=== PATIENT | female | born 1985 | race Two or more races ===

== ENCOUNTER 2016-12-27 13:46 | Emergency (ER) | payer OTHER ==
[2016-12-27 13:51] VITALS: TEMP 98.3; BMI 25.4
--- NOTE | 2016-12-27 14:23 | PDOC ---
History of Present Illness - General Chief Complaint: Headache Stated Complaint: HEADACHE Time Seen by Provider: 12/27/16 14:21 - History of Present Illness Initial Comments: 12/27/16 14:54 The pt is a 31 year old with no PMH who presents to ED complaining of a left sided headache that started 4 days ago. The pain is intermittent, lasts for an hour, 8/10 in severity, associated with light sensitivity, relieved by Ibuprofen. The pt reports numbness in upper extremities for a week. She also had episode of dizziness 6 days ago that resolved after lying in bed. The pt has never had headache like that in the past. She denies weakness, LOC. The pt denies chest pain, palpitations, hearing problems. Past History - Past Medical History Allergies/Adverse Reactions: Allergies Allergy/AdvReac Type Severity Reaction Status Date / Time No Known Allergies Allergy Verified 12/27/16 13:51 Home Medications: Ambulatory Orders Vit #108/Iron/FA [ One Tablet] 1 tab PO DAILY 04/30/15 Anemia: No Asthma: No Cancer: No Cardiac Disorders: No Diabetes: No HTN: No Hypercholesterolemia: No Seizures: No Thyroid Disease: No Other medical history: PT DENIES MEDICAL HX - Reproductive History (#): 3 Para: 1 Cervical CA: No Dysfunctional Uterine Bleeding: No Ectopic : No Endometrial CA: No Polycystic Ovaries: No Therapeutic (s) & number: No Tubal Ligation: No Spontaneous : 1 - Psycho/Social/Smoking Cessation Hx Anxiety: No Suicidal Ideation: No Smoking Status: No Smoking History: Never smoked Have you smoked in the past 12 months: No Number of Cigarettes Smoked Daily: 0 Hx Alcohol Use: No Drug/Substance Use Hx: No Substance Use Type: None Hx Substance Use Treatment: No Review of Systems - Review of Systems Able to Perform ROS?: Yes Comments:: 12/27/16 15:12 REVIEW OF SYSTEMS CONSTITUTIONAL: Absent: fever, chills, diaphoresis, generalized weakness, malaise, loss of appetite, weight change HEENT: Absent: rhinorrhea, nasal congestion, throat pain, throat swelling, difficulty swallowing, mouth swelling, ear pain, eye pain, visual changes CARDIOVASCULAR: Absent: chest pain, syncope, palpitations, irregular heart rate, lightheadedness , peripheral edema RESPIRATORY: Absent: cough, shortness of breath, dyspnea with exertion, orthopnea, wheezing, stridor, hemoptysis GASTROINTESTINAL: Absent: abdominal pain, abdominal distension, nausea, vomiting, diarrhea, constipation, melena, hematochezia GENITOURINARY: Absent: dysuria, frequency, urgency, hesitancy, hematuria, flank pain, genital pain MUSCULOSKELETAL: Absent: myalgia, arthralgia, joint swelling, back pain, neck pain SKIN: Absent: rash, itching, pallor NEUROLOGIC: headache Absent: focal weakness or paresthesias, dizziness, unsteady gait, seizure, mental status changes PSYCHIATRIC: Absent: anxiety, depression, suicidal or homicidal ideation, hallucinations. Is the patient limited Kazakh proficient: No *Physical Exam - Vital Signs Last Vital Signs Temp Pulse Resp BP Pulse Ox 98.3 F 73 16 131/76 95 12/27/16 13:48 12/27/16 13:48 12/27/16 13:48 12/27/16 13:48 12/27/16 13:48 - Physical Exam Comments: 12/27/16 15:13 GENERAL: The patient is awake, alert, and fully oriented, in no acute distress. HEAD: Normal with no signs of trauma. EYES: PERRL, extraocular movements intact, sclera anicteric, conjunctiva clear. No ptosis. ENT: Ears normal, nares patent, oropharynx clear without exudates, moist mucous membranes. NECK: Trachea midline, full range of motion, supple. LUNGS: Breath sounds equal, clear to auscultation bilaterally, no wheezes, no crackles, no accessory muscle use. HEART: Regular rate and rhythm, S1, S2 without murmur, rub or gallop. ABDOMEN: Soft, nontender, nondistended, normoactive bowel sounds, no guarding, no rebound, no hepatosplenomegaly, no masses. EXTREMITIES: 2+ pulses, warm, well-perfused, no edema. NEUROLOGICAL: Cranial nerves II through XII grossly intact. Normal speech, gait not observed. PSYCH: Normal mood, normal affect. SKIN: Warm, dry, normal turgor, no rashes or lesions noted Medical Decision Making - Medical Decision Making 12/27/16 15:14 The pt presents complaining of headache. We ordered CT head without contrast, Reglan IV, Benadryl IV. 12/27/16 15:49 Her headache resolved. The pt is feeling better. It is most likely migrane headache. CT head official reading is pending We ordered Decadron 10 mg IV. 12/27/16 17:08 The pt was informed to f/u with PCP and Neurology. *DC/Admit/Observation/Transfer Diagnosis at time of Disposition: Headache - Discharge Dispostion Disposition: HOME Condition at time of disposition: Good Admit: No - Referrals Referrals: Peyman Chopra MD [Staff Physician] - - Patient Instructions Additional Instructions: Please visit your primary care physician and Neurologist in the next 2 weeks. If you have a headache take 4 tablets of Ibuprofen as soon as the pain starts. If you feel jittery later today it may be form the medication you received called "Reglan" and you should take 25 mg of benadryl. If your symptoms worsen come back to emergency room as soon as possible. You MUST call and follow up with your doctor tomorrow. Please make sure your doctor reviews the results of your emergency department evaluation.
[2016-12-27] MEDS ORDERED: METOCLOPRAMIDE HCL INJECTION 10 MG/2 ML VIAL IVPUSH ONE (14:43)
[2016-12-27] MEDS ORDERED: SODIUM CHLORIDE 1,000 ML IV STA (14:43)
--- NOTE | 2016-12-27 14:43 | PDOC ---
Attending Attestation - Resident Resident Name: Chelsea Modi - ED Attending Attestation I have performed the following: I have examined & evaluated the patient, The case was reviewed & discussed with the resident, I agree w/resident's findings & plan, Exceptions are as noted - HPI HPI: 12/27/16 14:42 The patient is a 31 year old female with no significant past medical history who presents with intermittent headache for the past several days. The headache is left sided, dull, throbbing, mild in intensity. It is subacute in onset. It is associated with photophoboa and phonophobia. It is worsened by movement. She occasionally feels "dizzy." The episodes last 20 minutes to 1 hour and are relieved by sleeping and ibuprofen. She denies focal weakness or paresthesias. She denies visual changes, speech changes. She denies neck stiffness, fever, rash. 12/27/16 14:50 - Physicial Exam PE: 12/27/16 14:52 The patient is well-appearing and in no acute distress She has no focal neurological abnormalities - Medical Decision Making 12/27/16 14:52 She is well-appearing and in no acute distress Her clinical presentation is quite consistent with migraine without aura She does not have features of thunderclap headache Will CT had given the new onset headaches Will administer IV Reglan, Benadryl, IV fluids 12/27/16 15:39 Headache is almost completely resolved The patient states that she feels "slightly jittery" I suspect this is secondary to the Reglan Will administer additional Benadryl Head CT pending 12/27/16 16:37 The patient remains completely asymptomatic, with resolved headache Her "jitters" resolved after Reglan Head CT reading pending Clinical impression: Headache, most likely migraine; resolved Case discussed in detail with oncoming Emergency Physician including history, physical exam and ancillary studies. Oncoming Emergency Physician has assumed care for the patient and will complete the evaluation and treatment. Discharge Disposition - Diagnosis Headache - Discharge Dispostion Disposition: HOME Condition at time of disposition: Good Last Admission D/C Date: 05/02/15 - Referrals Referrals: Peyman Chopra MD [Staff Physician] - - Patient Instructions Additional Instructions: Please visit your primary care physician and Neurologist in the next 2 weeks. If you have a headache take 4 tablets of Ibuprofen as soon as the pain starts. If you feel jittery later today it may be form the medication you received called "Reglan" and you should take 25 mg of benadryl. If your symptoms worsen come back to emergency room as soon as possible. You MUST call and follow up with your doctor tomorrow. Please make sure your doctor reviews the results of your emergency department evaluation. - Post Discharge Activity
[2016-12-27] MEDS ORDERED: METOCLOPRAMIDE HCL INJECTION 10 MG/2 ML VIAL ONE ×2 (15:23→15:24)
[2016-12-27] MEDS ORDERED: DEXAMETHASONE SOD PHOSPHATE 10 MG/1 ML VIAL IVPB ONE (16:06)
[2016-12-27] MEDS ORDERED: DEXAMETHASONE SOD PHOSPHATE 10 MG/1 ML VIAL ONE (16:31)
[2016-12-27 17:38] VITALS: BP 110/70; PULSE 70
== END 2016-12-27 17:41 | disposition home or self-care (01) ==
LOC: JER 13:46
PROC: 3E0333Z Introduction of Anti-inflammatory into Peripheral Vein, Percutaneous Approach (ICD-10-PCS; principal; 2016-12-27)
PROC: 3E033GC Introduction of Other Therapeutic Substance into Peripheral Vein, Percutaneous Approach (ICD-10-PCS; 2016-12-27)
DX: R51 Headache (principal)
CPT/HCPCS: 70450-TC; 84703; 99282-25

== ENCOUNTER 2017-12-26 09:25 | Inpatient (IN) | payer OTHER ==
[2017-12-26] MEDS ORDERED: DEXTROSE 5%-LACTATED RINGERS 1,000 ML IV SCH (09:30)
[2017-12-26] MEDS ORDERED: OXYTOCIN 20 UNITS in 0.9% NS 20 UNIT/1,000 ML INFUS.BAG IV SCH (09:50)
[2017-12-26 09:54] VITALS: BMI 29.2
[2017-12-26] MEDS ORDERED: METHYLERGONOVINE MALEATE 0.2 MG/1 ML AMP IM PRN (09:55)
[2017-12-26 10:23] LABS: ARTERIAL BLD GAS O2 SATURATION 51.6 % (90-98.9); ARTERIAL BLOOD GAS BASE EXCESS -2.7 meq/l (-2-2); ARTERIAL BLOOD GAS PCO2 45.8 mmHg (35-45); ARTERIAL BLOOD GAS PO2 26.1 mmHg (80-100); ARTERIAL BLOOD GAS pH 7.32 (7.35-7.45)
[2017-12-26 10:24] LABS: VENOUS PC02 32.6 mmHg (38-52); VENOUS PH 7.38 (7.32-7.42); VENOUS PO2 37.8 mmHg (28-48)
[2017-12-26 10:36] LABS: BASO % 0.2 % (0-2.0); EOS % 0.2 % (0-4.5); HEMATOCRIT 33.1 % (32.4-45.2); MCH 30.6 pg (25.7-33.7); MCHC 33.3 g/dl (32.0-36.0); MEAN PLT VOLUME 10.8 fl (7.5-11.1); MONO % 4.2 % (3.8-10.2); NEUT % 84.4 % (42.8-82.8); PLATELET COUNT 172 K/MM3 (134-434); RDW 15.6 % (11.6-15.6); WHITE BLOOD COUNT 10.6 K/mm3 (4.0-10.0)
[2017-12-26] MEDS ORDERED: BISACODYL 10 MG SUPP.RECT RC PRN (10:36)
[2017-12-26] MEDS ORDERED: BENZOCAINE 20% 57 GM BOTTLE TP PRN (10:36)
[2017-12-26] MEDS ORDERED: BENZOCAINE 28 GM HEMORRHOIDAL OINTMENT TP PRN (10:36)
[2017-12-26] MEDS ORDERED: WITCH HAZEL 50% (TUCKS) 40 PAD/JAR PAD TP PRN (10:36)
[2017-12-26] MEDS ORDERED: oxyCODONE HCL 5 MG TABLET PO PRN (10:36)
--- NOTE | 2017-12-26 10:54 | HP ---
Past Medical History - Primary Care Physician PCP:: Leanne Leiva - Admission Chief Complaint: 32 yrs h/f , 39 weeks with SROM since 5.00 Am accompanied with LP,. admitted in active labor , pt wants to push History of Present Illness: PNC at [address] [place] [address] . wt gain 15 lbs panel : A Pos, Rpr nr, Hbsag neg, Rubella immune, Sickle neg , Hiv neg , quantiferon neg, Gbs neg , 1 hr Gtt 119, 06/05/18 pap ,nilm gc/ct neg. NT Screen , Modified Sequential neg serial sono done by [facility] for growth . 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 No: Gastritis Hepatobiliary: No: Hepatitis B Renal/: No: UTI ...: 4 ...Para: 2 ...Term: 2 (02/21/05 , 2kg in [place], 04/30/15 6'14" [facility]) ...: 0 ...Spon : 1 ...Induced : 0 ...Multiple Gestation: 0 ...LMP: 04/16/17 ... Weeks Gestation by Dates: 36.2 ...EDC by Dates: 01/21/18 ...EDC by Sono: 01/02/18 Heme/Onc: No: Anemia, Sickle Cell Disease Infectious Disease: No: AIDS, HIV, STD's, Tuberculosis Psych: Yes: Other (no c/o mental health issues) - Past Surgical History Past Surgical History: Yes: None Hx Myomectomy: No Hx Transabdominal Cerclage: No - Smoking History Smoking history: Never smoked Have you smoked in the past 12 months: No Aproximately how many cigarettes per day: 0 - Alcohol/Substance Use Hx Alcohol Use: No History of Substance Use: reports: None - Social History History of Recent Travel: No Home Medications - Allergies Allergies/Adverse Reactions: Allergies Allergy/AdvReac Type Severity Reaction Status Date / Time No Known Allergies Allergy Verified 12/26/17 09:54 - Home Medications Home Medications: Ambulatory Orders Vit 108/Iron/Folic AC [ One Tablet] 1 tab PO DAILY 04/30/15 Physical Exam - Maternity Vital Signs: Vital Signs Temperature 98.7 F 12/26/17 09:50 Pulse Rate 75 12/26/17 10:20 Respiratory Rate 18 12/26/17 10:20 Blood Pressure 120/65 12/26/17 10:20 O2 Sat by Pulse Oximetry (%) Constitutional: Yes: Well Nourished, Severe Distress Eyes: Yes: WNL HENT: Yes: WNL Neck: Yes: WNL Cardiovascular: Yes: WNL, Regular Rate and Rhythm Lungs: Clear to auscultation Breast(s): Yes: WNL - Abdominal Exam/OB Fundal Height: 38 Number of Fetuses: Single Presentation: Vertex Contractions: Yes Regularity: Regular Monitor Mode: External Heart Rate (range): 120 Heart Rate Location: Midline Category: II Accelerations: Non-Uniform Decelerations: Early - Physical Exam Musculoskeletal: Yes: WNL Extremities: Yes: WNL Edema: Yes Edema: LLE: 1+, RLE: 1+ Deep Tendon Reflex Grade: Normal +2 ...Motor Strength: WNL Psychiatric: Yes: WNL, Alert, Oriented - Labs Lab Results: CBC, BMP 12/26/17 09:40 Laboratory Tests 12/26/17 09:40 Sodium 138 Potassium 3.7 Chloride 105 Carbon Dioxide 19 L BUN 6 L Creatinine 0.5 L Random Glucose 106 Calcium 8.4 L Problem List - Problems (1) with 39 completed weeks gestation Code(s): Z3A.39 - 39 WEEKS GESTATION OF (2) Labor established Code(s): ZSC7817 - Assessment/Plan 32 yrs , 39 weeks gestation srom, gbs neg, admitted in active labor, 2nd stage of labor, pushing Dr Story delievered the patient for Dr Leiva , normal vaginal delivery.
[2017-12-26 11:04] LABS: ANION GAP 14 (8-16); BLOOD UREA NITROGEN 6 mg/dL (7-18); CALCIUM 8.4 mg/dL (8.5-10.1); CHLORIDE 105 mmol/L (98-107); CO2 19 mmol/L (21-32); CREATININE 0.5 mg/dL (0.55-1.02); GLUCOSE,RANDOM 106 mg/dL (74-106); POTASSIUM 3.7 mmol/L (3.5-5.1); SODIUM 138 mmol/L (136-145)
[2017-12-26] MEDS ORDERED: OXYTOCIN 20 UNITS in 0.9% NS 20 UNIT/1,000 ML INFUS.BAG IV ONE (11:05)
--- NOTE | 2017-12-26 11:05 | PN ---
Delivery - Delivery Vaginal Delivery: No Problems, Spontaneous Type of Anesthesia: None Episiotomy/Laceration: None EBL (cc): 500 Delivery, Single - Stages of Labor Date 1st Stage Initiatied: 12/26/17 Time 1st Stage Initiated: 05:00 Date 2nd Stage Initiated: 12/26/17 Time 2nd Stage Initiated: 09:35 Date of Delivery: 12/26/17 Time of Delivery: 09:41 Time Placenta Delivered: 09:50 Placenta: Yes: Spontaneous, Uterine Exploration - Condition of Computing Services Director/Air Hole Driller Present: No Gender: Female Weight: 7 lb 1 oz Position: Right, OA Total Hours ROM (Hrs/Mins): 4HRS 50MIN - 1 Minute Total Score: 9 5 Minutes Total Score: 9 - [place] Feeding Plan Initial Plan: Elected not to breastfeed exclusively throughout hospitalization Remarks - Remarks Remarks: 32 yrs , 39 weeks , gbs neg, admitted in active labor , pushing . Dr Story conducted delivery for Dr beckman intrapartum course uneventful
[2017-12-26 11:47] LABS: INR 0.9 (0.82-1.09); PROTHROMBIN TIME (PATIENT) 10.2 SEC (9.98-11.88)
[2017-12-26 11:50] LABS: ACTIVATED PTT 27.2 SECONDS (26.9-34.4)
--- NOTE | 2017-12-26 13:33 | PN ---
Post Progress Note - Subjective Subjective: 32 yo Para 3 status post vaginal delivery, seen and evaluated. Doing well. Post Day: 1 Type of Delivery: Vital Signs: Vital Signs Temperature 98.7 F 12/26/17 12:15 Pulse Rate 77 12/26/17 12:15 Respiratory Rate 20 12/26/17 12:15 Blood Pressure 118/68 12/26/17 12:15 O2 Sat by Pulse Oximetry (%) Breast Exam: Yes: Soft Uterus: Yes: Fundus Firm Abdomen/GI: Yes: Abdomen soft, Tolerating PO Lochia: Yes: Rubra Lochia, amount: Moderate Activity: Ambulating - Labs Labs: CBC WBC 10.6 K/mm3 (4.0-10.0) H 12/26/17 09:40 RBC 3.60 M/mm3 (3.60-5.2) 12/26/17 09:40 Hgb 11.0 GM/dL (10.7-15.3) 12/26/17 09:40 Hct 33.1 % (32.4-45.2) 12/26/17 09:40 MCV 92.0 fl (80-96) 12/26/17 09:40 MCH 30.6 pg (25.7-33.7) 12/26/17 09:40 MCHC 33.3 g/dl (32.0-36.0) 12/26/17 09:40 RDW 15.6 % (11.6-15.6) 12/26/17 09:40 Plt Count 172 K/MM3 (134-434) 12/26/17 09:40 MPV 10.8 fl (7.5-11.1) 12/26/17 09:40 Neutrophils % 84.4 % (42.8-82.8) H D 12/26/17 09:40 Lymphocytes % 11.0 % (8-40) D 12/26/17 09:40 Monocytes % 4.2 % (3.8-10.2) 12/26/17 09:40 Eosinophils % 0.2 % (0-4.5) D 12/26/17 09:40 Basophils % 0.2 % (0-2.0) 12/26/17 09:40 Problem List - Problems (1) Status post normal vaginal delivery Code(s): DLX0182 - Assessment/Plan Status post vaginal delivery Stable Continue routine care
[2017-12-26] MEDS: FERROUS SO4 325 MG TABLET (FP) PO SCH (17:13)
[2017-12-27] MEDS: ACETAMINOPHEN 325 MG TABLET (FP) PO PRN (01:59)
[2017-12-27] MEDS: IBUPROFEN 600 MG TABLET (FP) PO PRN (01:59)
--- NOTE | 2017-12-27 07:15 | PN ---
Progress Note (short form) - Note Progress Note: ppd 1 doing well, no c/o , voids ok CBC, BMP 12/26/17 09:40 12/26/17 09:40 Last Vital Signs Temp Pulse Resp BP Pulse Ox 97.6 F 75 20 98/61 97 12/27/17 06:00 12/27/17 06:00 12/27/17 06:00 12/27/17 06:00 12/26/17 20:40 uterus firm, non tender lochia mild no calf tenderness plan ambulate, cbc
[2017-12-27 07:53] LABS: BASO % 0.3 % (0-2.0); EOS % 1.1 % (0-4.5); HEMATOCRIT 31.6 % (32.4-45.2); HEMOGLOBIN 10.5 GM/dL (10.7-15.3); LYMPH % 20.9 % (8-40); MCH 30.6 pg (25.7-33.7); MCHC 33.2 g/dl (32.0-36.0); MEAN PLT VOLUME 10.6 fl (7.5-11.1); MONO % 6.5 % (3.8-10.2); NEUT % 71.2 % (42.8-82.8); PLATELET COUNT 171 K/MM3 (134-434); RBC 3.43 M/mm3 (3.60-5.2); RDW 15.5 % (11.6-15.6); WHITE BLOOD COUNT 9.2 K/mm3 (4.0-10.0)
[2017-12-27] MEDS: FERROUS SO4 325 MG TABLET (FP) PO SCH ×2 (08:38→17:03)
[2017-12-27] MEDS: PRENATAL VITAMINS W/ FOLIC ACID TABLET (FP) PO SCH (09:33)
[2017-12-27] MEDS ORDERED: DIPHTH,PERTUSS(ACELL),TET 0.5 ML DISP.SYRIN IM ONE (10:00)
[2017-12-27] MEDS ORDERED: FLU VACC QS2017-18 36MOS UP/PF 60 MCG/0.5 ML SYRINGE IM ONE (10:00)
[2017-12-27] MEDS ORDERED: SENNOSIDES/DOCUSATE COMBO (SENNA PLUS) TABLET (UD) PO PRN (22:00)
--- NOTE | 2017-12-28 08:39 | DS ---
Physical Exam-EYE SPECIALIST Vital Signs: Vital Signs Temperature 98.2 F 12/27/17 21:34 Pulse Rate 92 H 12/27/17 21:34 Respiratory Rate 20 12/27/17 21:34 Blood Pressure 119/73 12/27/17 21:34 O2 Sat by Pulse Oximetry (%) 97 12/26/17 20:40 Constitutional: Yes: Well Nourished Eyes: Yes: WNL HENT: Yes: WNL Neck: Yes: WNL Cardiovascular: Yes: WNL Respiratory: Yes: WNL Gastrointestinal: Yes: WNL Renal/: Yes: WNL Pelvis: Yes: WNL External Genitalia: Yes: Normal ....Post : Yes: Uterus firm, Uterus non-tender, Moderate lochia rubra ( perineum intact) Breast(s): Yes: WNL (BF) Musculoskeletal: Yes: WNL Extremities: Yes: WNL. No: Calf Tenderness Edema: No Integumentary: Yes: WNL Neurological: Yes: WNL ...Motor Strength: WNL Psychiatric: Yes: WNL Labs: CBC, BMP 12/27/17 07:15 12/26/17 09:40 Delivery - Delivery Vaginal Delivery: No Problems, Spontaneous Type of Anesthesia: None Episiotomy/Laceration: None EBL (cc): 500 Delivery, Single - Stages of Labor Date 1st Stage Initiatied: 12/26/17 Time 1st Stage Initiated: 05:00 Date 2nd Stage Initiated: 12/26/17 Time 2nd Stage Initiated: 09:35 Date of Delivery: 12/26/17 Time of Delivery: 09:41 Time Placenta Delivered: 09:50 Placenta: Yes: Spontaneous, Uterine Exploration - Condition of Infant Home Coordinator/Counter Sales Person Present: No Infant Gender: Female Weight: 7 lb 1 oz Position: Right, OA Total Hours ROM (Hrs/Mins): 4HRS 50MIN - 1 Minute Total Score: 9 5 Minutes Total Score: 9 - Feeding Plan Initial Plan: Exclusive throughout hospitalization Remarks - Remarks Remarks: 32 yrs , 39 weeks , gbs neg, admitted in active labor , pushing . Dr Story conducted delivery for Dr beckman intrapartum course uneventful pp course uneventful. discharge today Discharge Summary Reason For Visit: LABOR Current Active Problems Labor established (Acute) with 39 completed weeks gestation (Acute) Status post normal vaginal delivery (Acute) Condition: Stable - Instructions Diet, Activity, Other Instructions: Post Instructions DIET: Continue good diet high in protein, calcium, and iron rich foods. Drink at least eight (8) glasses of water daily in addition to other fluids. ___ Regular diet ___ LoCarb/Low Calorie Diet ___ Diabetic Diet MEDICATIONS: Continue vitamins and iron as previously directed. Motrin and Tylenol may be taken for minor discomfort. ACTIVITY: Mild to moderate exercise may be started in two (2) weeks. Take frequent rest periods. Resume normal activity after six (6) week check up. WOUND CARE OF OPERATIVE SITE: Continue use of perineal bottle until vaginal discharge stops. Keep area clean. Shower daily. Keep abdominal wound dry. Report any drainage or redness to physician. Tub baths, tampons and douches are not permitted for [address] Breast feeding & or Bottle feeding BREAST CARE: (For those that are not ): If engorgement occurs: Wear tight fitting bra. Take Tylenol or Motrin for pain. Apply cold packs (ice in bags to each breast ) FAMILY PLANNING: There are many control alternatives to pursue and they should be discussed at your first office visit. You may resume sexual activity after your six (6) week check up. (Remember, breast feeding is not a contraceptive) NEXT PHYSICIAN APPOINTMENT: Be certain to call for a six (6) week appointment, unless otherwise directed. Call Clinic or got to Emergency Dept if you have any of the following: Heavy vaginal bleeding Painful urination Leg pain Unusual odor noted to vaginal bleeding High fever Red streaking noted on breast Referrals: Leanne Beckman MD [Staff Physician] - Disposition: HOME - Home Medications Comprehensive Discharge Medication List: Ambulatory Orders Vit 108/Iron/Folic AC [ One Tablet] 1 tab PO DAILY 04/30/15 Acetaminophen [Tylenol .Regular Strength -] 650 mg PO Q3H PRN tablet 12/28/17 Ferrous Sulfate [Feosol] 325 mg PO DAILY #60 ud 12/28/17 Ibuprofen [Motrin -] 200 mg PO Q4H PRN tablet 12/28/17 Vitamins (Sjr) - 1 tab PO DAILY #30 tablet 12/28/17
[2017-12-28] MEDS: FERROUS SO4 325 MG TABLET (FP) PO SCH (08:50)
[2017-12-28] MEDS: ACETAMINOPHEN 325 MG TABLET (FP) PO PRN (08:51)
[2017-12-28] MEDS: IBUPROFEN 600 MG TABLET (FP) PO PRN (08:51)
[2017-12-28] MEDS: PRENATAL VITAMINS W/ FOLIC ACID TABLET (FP) PO SCH (10:43)
[2017-12-28 12:12] VITALS: BP 120/70; PULSE 95; TEMP 98.9
== END 2017-12-28 12:00 | disposition home or self-care (01) | DRG 560 ==
LOC: JLDR 09:25 → J3W 11:55
PROVIDERS: ADMIT Obstetrics & Gynecology; ATTEND Obstetrics & Gynecology
PROC: 10E0XZZ Delivery of Products of Conception, External Approach (ICD-10-PCS; principal; 2017-12-26)
DX: O80 Encounter for full-term uncomplicated delivery (principal); Z3A.39 39 weeks gestation of pregnancy; Z37.0 Single live birth
CPT/HCPCS: 36415; 36600; 59409; 80048; 82803; 85025; 85610; 85730; 86593; 86850; 86900; 86901; 90686; 90715; G0008

== ENCOUNTER 2022-03-01 19:16 | Emergency (ER) | payer OTHER ==
[2022-03-01 19:21] VITALS: TEMP 99.2; BMI 30.1
[2022-03-01] MEDS ORDERED: ACETAMINOPHEN 500 MG TABLET (FP) PO ONE (20:10)
[2022-03-01] MEDS ORDERED: SODIUM CHLORIDE 1,000 ML IV STA (20:10)
[2022-03-01] MEDS ORDERED: METOCLOPRAMIDE HCL INJECTION 10 MG/2 ML VIAL IVPUSH ONE (20:10)
[2022-03-01] MEDS ORDERED: METOCLOPRAMIDE HCL INJECTION 10 MG/2 ML VIAL ONE (20:20)
[2022-03-01] MEDS ORDERED: ACETAMINOPHEN 500 MG TABLET (FP) ONE (20:20)
[2022-03-01 22:50] LABS: PH,URINE 8.5 (5.0-8.0); URINE APPEARANCE TURBID; URINE BILIRUBIN NEGATIVE (NEGATIVE); URINE COLOR YELLOW; URINE GLUCOSE (UA) NEGATIVE (NEGATIVE); URINE KETONE NEGATIVE (NEGATIVE); URINE LEUK ESTERASE NEGATIVE (NEGATIVE); URINE NITRITE NEGATIVE (NEGATIVE); URINE PROTEIN NEGATIVE (NEGATIVE)
[2022-03-01 22:53] LABS: HCG,QUALITATIVE URINE Negative
[2022-03-01 22:57] VITALS: BP 118/72; PULSE 88
== END 2022-03-01 23:02 | disposition home or self-care (01) ==
LOC: JER 19:16
PROC: 3E033GC Introduction of Other Therapeutic Substance into Peripheral Vein, Percutaneous Approach (ICD-10-PCS; principal; 2022-03-01)
DX: G43.909 Migraine, unspecified, not intractable, without status migrainosus (principal)
CPT/HCPCS: 81003; 84703; 87086; 99284-25

== ENCOUNTER 2022-03-07 18:50 | Emergency (ER) | payer OTHER ==
[2022-03-07 19:11] VITALS: BMI 29.9
[2022-03-07] MEDS ORDERED: METOCLOPRAMIDE HCL INJECTION 10 MG/2 ML VIAL IVPUSH ONE (20:20)
[2022-03-07] MEDS ORDERED: SODIUM CHLORIDE 0.9% 500 ML INFUS.BAG IV ONE (20:20)
[2022-03-07] MEDS ORDERED: KETOROLAC TROMETHAMINE 30 MG/1 ML VIAL IVPUSH ONE (20:20)
[2022-03-07] MEDS ORDERED: KETOROLAC TROMETHAMINE 30 MG/1 ML VIAL ONE (20:35)
[2022-03-07] MEDS ORDERED: METOCLOPRAMIDE HCL INJECTION 10 MG/2 ML VIAL ONE (20:36)
[2022-03-08] VITALS: BP 113/67; PULSE 93; TEMP 98.5
== END 2022-03-08 00:14 | disposition home or self-care (01) ==
LOC: JERFT 18:50 → JER 18:50
PROC: 3E033GC Introduction of Other Therapeutic Substance into Peripheral Vein, Percutaneous Approach (ICD-10-PCS; principal; 2022-03-07)
DX: G43.101 Migraine with aura, not intractable, with status migrainosus (principal)
CPT/HCPCS: 70450-TC; 99285-25

== ENCOUNTER 2022-10-03 09:50 | Emergency (ER) | payer OTHER ==
[2022-10-03 10:01] VITALS: RESP 20; BMI 28.3
[2022-10-03] MEDS ORDERED: ACETAMINOPHEN 1000 MG/100 ML BAG IVPB ONE (11:45)
[2022-10-03] MEDS ORDERED: SODIUM CHLORIDE 1,000 ML IV STA (11:46)
[2022-10-03] MEDS ORDERED: ACETAMINOPHEN INJECTION 100 ML IVPB ONE (11:58)
[2022-10-03 12:02] LABS: URINE APPEARANCE CLEAR; URINE BILIRUBIN NEGATIVE (NEGATIVE); URINE COLOR YELLOW; URINE GLUCOSE (UA) NEGATIVE (NEGATIVE); URINE KETONE NEGATIVE (NEGATIVE); URINE LEUK ESTERASE NEGATIVE (NEGATIVE); URINE NITRITE NEGATIVE (NEGATIVE); URINE PROTEIN NEGATIVE (NEGATIVE); URINE UROBILINOGEN 0.2 mg/dL (0.2-1.0)
[2022-10-03 12:05] LABS: HCG,QUALITATIVE URINE Negative
[2022-10-03 12:28] LABS: BASO % 0.5 % (0-2.0); EOS % 1.5 % (0-4.5); HEMATOCRIT 39.3 % (32.4-45.2); HEMOGLOBIN 12.9 GM/dL (10.7-15.3); LYMPH % 35.7 % (8-40); MCH 29.7 pg (25.7-33.7); MCHC 32.9 g/dl (32.0-36.0); MEAN CELL VOLUME 90.2 fl (80-96); MEAN PLT VOLUME 9.6 fl (7.5-11.1); MONO % 9.5 % (3.8-10.2); NEUT % 52.8 % (42.8-82.8); PLATELET COUNT 273 10^3/uL (134-434); RBC 4.36 M/mm3 (3.60-5.2); RDW 13.7 % (11.6-15.6); WHITE BLOOD COUNT 9.1 K/mm3 (4.0-10.0)
[2022-10-03 13:07] LABS: ALBUMIN 3.6 g/dl (3.4-5.0); BLOOD UREA NITROGEN 10.9 mg/dL (7-18); CALCIUM 8.9 mg/dL (8.5-10.1)
[2022-10-03 13:10] LABS: CREATININE 0.5 mg/dL (0.55-1.3)
[2022-10-03 13:12] LABS: BILIRUBIN,TOTAL 0.3 mg/dL (0.2-1); TOT PROT 7.1 g/dl (6.4-8.2)
[2022-10-03 17:25] VITALS: PULSE 76; TEMP 97.9
[2022-10-03 17:36] VITALS: BP 99/59
== END 2022-10-03 17:51 | disposition home or self-care (01) ==
LOC: JER 09:50
PROC: 3E033GC Introduction of Other Therapeutic Substance into Peripheral Vein, Percutaneous Approach (ICD-10-PCS; principal; 2022-10-03)
DX: R10.2 Pelvic and perineal pain (principal)
CPT/HCPCS: 36415; 76830-TC; 80053; 81003; 84703; 85025; 87086; 87491; 87591; 99284-25

== ENCOUNTER 2023-08-02 23:37 | Emergency (ER) | payer SELFPAY ==
[2023-08-02 23:43] VITALS: BP 150/88; PULSE 98; RESP 20; TEMP 98.5; BMI 25.4
[2023-08-03] MEDS ORDERED: MAG HYDROX/AL HYDROX/SIMETH 30 ML UNIT-DOSE CUP PO ONE (00:09)
[2023-08-03] MEDS ORDERED: FAMOTIDINE 20 MG TABLET PO ONE (00:09)
[2023-08-03] MEDS ORDERED: FAMOTIDINE 20 MG TABLET ONE (00:12)
[2023-08-03] MEDS ORDERED: MAG HYDROX/AL HYDROX/SIMETH 30 ML UNIT-DOSE CUP ONE (00:12)
[2023-08-03] MEDS ORDERED: ALBUTEROL SO4 2.5/IPRATROPIUM 0.5 INH SOL 3 ML VIAL.NEB. NEB ONE ×2 (02:36→02:40)
[2023-08-03] MEDS ORDERED: DEXAMETHASONE 1.5 MG TABLET PO ONE (02:37)
[2023-08-03] MEDS ORDERED: DEXAMETHASONE 4 MG TABLET (FP) ONE (02:41)
== END 2023-08-03 03:00 | disposition home or self-care (01) ==
LOC: JER 23:37
PROC: 3E0F7GC Introduction of Other Therapeutic Substance into Respiratory Tract, Via Natural or Artificial Opening (ICD-10-PCS; principal; 2023-08-03)
DX: R05.9 Cough, unspecified (principal); Z20.822 Contact with and (suspected) exposure to COVID-19
CPT/HCPCS: 0241U-QW; 71046-TC-FY; 99284-25

== ENCOUNTER 2023-09-06 16:11 | Emergency (ER) | payer OTHER ==
[2023-09-06 16:24] VITALS: BP 144/79; PULSE 84; RESP 16; TEMP 98.5; BMI 26.6
[2023-09-06] MEDS ORDERED: ACETAMINOPHEN 500 MG TABLET (FP) PO ONE (18:00)
[2023-09-06] MEDS ORDERED: ACETAMINOPHEN 500 MG TABLET (FP) ONE (18:08)
== END 2023-09-06 18:30 | disposition home or self-care (01) ==
LOC: JERFT 16:11
DX: R51.9 Headache, unspecified (principal); S09.90XA Unspecified injury of head, initial encounter; V49.40XA Driver injured in collision with unspecified motor vehicles in traffic accident, initial encounter; Y93.I9 Activity, other involving external motion
CPT/HCPCS: 99283-25

== ENCOUNTER 2024-09-25 17:44 | Emergency (ER) | payer OTHER ==
[2024-09-25 17:49] VITALS: BMI 26.6
[2024-09-25 18:53] LABS: BASO % 0.4 % (0-2.0); EOS % 3.1 % (0-4.5); HEMOGLOBIN 12.7 GM/dL (10.7-15.3); LYMPH % 28.1 % (8-40); MCH 28.9 pg (25.7-33.7); MCHC 32.6 g/dl (32.0-36.0); MEAN CELL VOLUME 88.6 fl (80-96); MEAN PLT VOLUME 9.4 fl (7.5-11.1); MONO % 9.5 % (3.8-10.2); NEUT % 58.9 % (42.8-82.8); PLATELET COUNT 265 10^3/uL (134-434); RDW 14.4 % (11.6-15.6)
[2024-09-25 19:01] LABS: INR 0.94 (0.83-1.09); PROTHROMBIN TIME (PATIENT) 10.8 SEC (9.7-13.0)
[2024-09-25 19:04] LABS: ACTIVATED PTT 30.6 SECONDS (25.2-36.5)
[2024-09-25 19:13] LABS: POTASSIUM 4.2 mmol/L (3.5-5.1)
[2024-09-25 19:15] LABS: ALBUMIN 3.5 g/dl (3.4-5.0); CALCIUM 9.3 mg/dL (8.5-10.1)
[2024-09-25 19:16] LABS: BLOOD UREA NITROGEN 8.6 mg/dL (7-18)
[2024-09-25 19:19] LABS: CREATININE 0.5 mg/dL (0.55-1.3)
[2024-09-25 19:20] LABS: BILIRUBIN,TOTAL 0.2 mg/dL (0.2-1); TOT PROT 6.9 g/dl (6.4-8.2)
[2024-09-25] MEDS ORDERED: ACETAMINOPHEN INJECTION 100 ML ONE (19:22)
[2024-09-25] MEDS: ACETAMINOPHEN 1000 MG/100 ML BAG IVPB ONE (19:32)
[2024-09-26 01:57] VITALS: RESP 18
[2024-09-26 03:04] VITALS: TEMP 98.1
[2024-09-26 06:09] VITALS: BP 100/56; PULSE 85
== END 2024-09-26 06:11 | disposition home or self-care (01) ==
LOC: JER 17:44
PROC: 3E033NZ Introduction of Analgesics, Hypnotics, Sedatives into Peripheral Vein, Percutaneous Approach (ICD-10-PCS; principal; 2024-09-25)
DX: O99.891 Other specified diseases and conditions complicating pregnancy (principal); R07.81 Pleurodynia; O26.899 Other specified pregnancy related conditions, unspecified trimester; R10.12 Left upper quadrant pain; Z3A.00 Weeks of gestation of pregnancy not specified; Z20.822 Contact with and (suspected) exposure to COVID-19
CPT/HCPCS: 0241U-QW; 36415; 71045-TC-FY; 76817-TC; 80053; 84484; 84702; 84703; 85025; 85610; 85730; 93005; 93010; 99285-25; J0131